=== PATIENT | male | born 1955 | race Caucasian/White ===

== ENCOUNTER → 2019-04-04 | Outpatient (REF) | payer BC | LOC: M LAB REF 15:42 | PROVIDERS: ATTEND Dermatology | DX: L82.1 Other seborrheic keratosis (principal); C44.519 Basal cell carcinoma of skin of other part of trunk; D22.5 Melanocytic nevi of trunk ==

== ENCOUNTER → 2019-05-07 | Outpatient (REF) | payer BC | LOC: M SFHCPLAZ 09:53 | PROVIDERS: ATTEND Dermatology | DX: C44.519 Basal cell carcinoma of skin of other part of trunk (principal) ==

== ENCOUNTER → 2020-02-24 | Outpatient (REF) | payer BC | LOC: M LAB REF 09:38 | PROVIDERS: ATTEND Dermatology | DX: C44.519 Basal cell carcinoma of skin of other part of trunk (principal) ==

== ENCOUNTER → 2020-11-11 | Outpatient (CLI) | payer BC ==
--- NOTE | 2020-11-11 10:59 | REP ---
INDICATION: LEFT SIDE NECK PAIN; LEFT POSTERIOR SHOULDER PAIN; NO INJURY COMPARISON: None. TECHNIQUE: Internal rotation, external rotation, and Y view. FINDINGS: No acute fracture or dislocation. Very mild age-related degenerative changes include subtle cortical irregularity at the acromioclavicular joint. The glenohumeral joint appears relatively intact and normal. No periarticular calcifications. External rotation view demonstrates normal subacromial space. IMPRESSION: Mild age-related changes. <Electronically signed by Vel Clayton > 11/11/20 [id number]
--- NOTE | 2020-11-11 11:00 | REP ---
INDICATION: LEFT SIDE NECK PAIN; LEFT POSTERIOR SHOULDER PAIN; NO INJURY COMPARISON: None. TECHNIQUE: AP, lateral, flexion/extension, bilateral oblique, and open-mouth views. FINDINGS: Alignment is maintained. There is no evidence for acute fracture / compression injury or subluxation. Moderate to advanced multilevel degenerative changes include endplate sclerosis, disc space narrowing, and marginal osteophytosis with associated facet hypertrophy. Findings are most pronounced at the C5-6, C6-7 levels and to a lesser extent C4-5 and C7-T1 levels. Open mouth view demonstrates normal C1-C2 articulation and odontoid process. IMPRESSION: Moderate to advanced multilevel degenerative spondylosis. <Electronically signed by Vel Clayton > 11/11/20 [id number]
== END ==
LOC: M CLY 10:03
PROVIDERS: ATTEND Physician Assistant
DX: M54.2 Cervicalgia (principal)

== ENCOUNTER → 2021-01-29 | Outpatient (CLI) | payer BC ==
--- NOTE | 2021-01-29 17:03 | REPVR ---
PROCEDURE INFORMATION: Exam: MR Cervical Spine Without Contrast Exam date and time: 01/29/2021 10:52 AM Age: 65 years old Clinical indication: Myleopathy TECHNIQUE: Imaging protocol: Multiplanar magnetic resonance images of the cervical spine without contrast. COMPARISON: CR SPINE CERVICAL COMPL 11/11/2020 10:16 AM FINDINGS: Cervical vertebral body heights are intact. Straightening of the cervical lordosis. The dens is intact. No abnormal marrow signal. No cord compression, expansion, or abnormal cord signal. Visualized structures of the posterior fossa are unremarkable. Soft tissues are unremarkable. C2-C3: No significant canal or foraminal narrowing. C3-C4: Posterior disc protrusion and uncovertebral spurring cause mild canal narrowing with mild right and moderate left foraminal narrowing. C4-C5: Uncovertebral spurring and facet hypertrophy cause severe left foraminal narrowing with compression of the exiting left C5 nerve root. Along with posterior disc protrusion or is mild right foraminal narrowing and mild canal narrowing. C5-C6: Combination of posterior disc protrusion, facet hypertrophy, and uncovertebral spurring cause severe bilateral foraminal narrowing with compression of the bilateral exiting C6 nerve roots. Moderate canal narrowing with effacement of the anterior thecal sac. C6-C7: Posterior disc protrusion and uncovertebral spurring cause moderate canal narrowing with effacement of the anterior thecal sac. Severe bilateral foraminal narrowing with compression of the bilateral exiting C7 nerve roots. C7-T1: Left paracentral disc protrusion superimposed over broad-based disc bulge causes moderate canal narrowing with effacement of the thecal sac and slight indentation on the anterior left aspect of the spinal cord. Along with uncovertebral spurring there is mild right and severe left foraminal narrowing. Compression of the exiting left C8 nerve root. IMPRESSION: Multilevel advanced spondylotic changes of the cervical spine, as detailed above. Electronically signed by: Felix Muñoz On 01/29/2021 17:03:27 PM
== END ==
LOC: M PLARAD 09:53
PROVIDERS: ATTEND Family Medicine
DX: M47.12 Other spondylosis with myelopathy, cervical region (principal)